=== PATIENT | male | born 1965 | race Caucasian/White ===

== ENCOUNTER 2021-05-09 12:51 | Inpatient (IN) | payer BC ==
[~2021-05-09] VITALS: Ht 180.3 cm; Wt 125.8 kg
[~2021-05-09 12:51] MED LIST: PREDNISONE10 MG PO; TESSALON PERLE100 MG PO; ZITHROMAX250 MG PO
[2021-05-09 16:35] LABS: HEMOGLOBIN 15.1 gm/dl (14.0-17.5); RED BLOOD COUNT 6.85 M/UL (4.20-5.50); WHITE BLOOD COUNT 5.6 K/UL (4.5-11.0)
[2021-05-09] MEDS ORDERED: DOXYCYCLINE HY100 MG PO (18:21)
[2021-05-10 08:35] LABS: HEMOGLOBIN 13.6 gm/dl (14.0-17.5); WHITE BLOOD COUNT 5.5 K/UL (4.5-11.0)
[2021-05-10 09:19] LABS: BUN/CREATININE RATIO 21 (0-10)
[2021-05-10 09:20] LABS: RED BLOOD COUNT 6.13 M/UL (4.20-5.50)
[2021-05-10] MEDS ORDERED: IPRAT-ALBUT 0.5-3 ML NEB (10:10)
[2021-05-10] MEDS ORDERED: PROTONIX40 MG PO (10:12)
[2021-05-10] MEDS ORDERED: TYLENOL EXTRA500 MG PO (10:13)
[2021-05-10] MEDS ORDERED: CARAFATE1 GM PO (10:13)
[2021-05-10] MEDS ORDERED: ZYRTEC10 MG PO (11:16)
--- NOTE | 2021-05-10 13:21 | NUR ---
reported to dr. miquel bowser complaints of right upper abdominal pain- he acknoweldged
[2021-05-11 08:00] LABS: RED BLOOD COUNT 5.9 M/UL (4.20-5.50)
[2021-05-11 08:02] LABS: WHITE BLOOD COUNT 3.9 K/UL (4.5-11.0)
[2021-05-11 08:56] LABS: BUN/CREATININE RATIO 20 (0-10)
[2021-05-13 07:05] LABS: HEMOGLOBIN 13.6 gm/dl (14.0-17.5); RED BLOOD COUNT 6.08 M/UL (4.20-5.50)
[2021-05-13 07:28] LABS: BUN/CREATININE RATIO 22 (0-10)
[2021-05-13 07:29] LABS: WHITE BLOOD COUNT 5.6 K/UL (4.5-11.0)
[2021-05-14 07:44] LABS: HEMOGLOBIN 13.5 gm/dl (14.0-17.5); RED BLOOD COUNT 6.08 M/UL (4.20-5.50); WHITE BLOOD COUNT 6.6 K/UL (4.5-11.0)
[2021-05-14 07:57] LABS: BUN/CREATININE RATIO 21 (0-10)
--- NOTE | 2021-05-14 15:32 | NUR ---
patient oxygen sat 87% on room air
[2021-05-14] MEDS ORDERED: VITAMIN C 500500 MG PO (15:42)
[2021-05-14] MEDS ORDERED: DECADRON6 MG PO (15:42)
[2021-05-14] MEDS ORDERED: CEFUROXIME500 MG PO (15:42)
== END 2021-05-14 17:40 | disposition home or self-care (01) | DRG 177 ==
LOC: ER1 12:51 → M/S 23:29 → CDU 23:29 → M/S 05-10 10:20
PROVIDERS: Family Medicine; Internal Medicine; Internal Medicine Infectious Disease; ADMIT Internal Medicine
PROC: XW033G6 Introduction of REGN-COV2 Monoclonal Antibody into Peripheral Vein, Percutaneous Approach, New Technology Group 6 (ICD-10-PCS; principal; 2021-05-09)
PROC: XW033E5 Introduction of Remdesivir Anti-infective into Peripheral Vein, Percutaneous Approach, New Technology Group 5 (ICD-10-PCS; 2021-05-09)
PROC: 3E0333Z Introduction of Anti-inflammatory into Peripheral Vein, Percutaneous Approach (ICD-10-PCS; 2021-05-09)
PROC: 8E0ZXY6 Isolation (ICD-10-PCS; 2021-05-10)
DX: U07.1 COVID-19 (principal); J12.82 Pneumonia due to coronavirus disease 2019; J96.01 Acute respiratory failure with hypoxia; M62.82 Rhabdomyolysis; K21.9 Gastro-esophageal reflux disease without esophagitis; R94.5 Abnormal results of liver function studies; Z99.81 Dependence on supplemental oxygen
CPT/HCPCS: 36415; 36600; 71045; 76705; 80048; 80053; 82550; 82553; 82803; 83605; 83874; 84484; 85025; 93005; 94760; 99285; J0692; J1100; J1650; J7030; M0243; Q9967

== ENCOUNTER 2021-06-02 08:55 | Emergency (ER) | payer BC ==
[~2021-06-02 08:55] MED LIST changes: +CARAFATE1 GM PO; +CEFUROXIME500 MG PO; +DECADRON6 MG PO; +DOXYCYCLINE HY100 MG PO; +IPRAT-ALBUT 0.5-3 ML NEB; +PROTONIX40 MG PO; +TYLENOL EXTRA500 MG PO; +VITAMIN C 500500 MG PO; +ZYRTEC10 MG PO
[2021-06-02 10:08] LABS: HEMOGLOBIN 13.5 gm/dl (14.0-17.5); RED BLOOD COUNT 5.87 M/UL (4.20-5.50); WHITE BLOOD COUNT 5.1 K/UL (4.5-11.0)
[2021-06-02 10:23] LABS: BUN/CREATININE RATIO 18 (0-10)
[2021-06-02] MEDS ORDERED: ATROVENT-HFA12.9 GM INH (12:22)
[2021-06-02] MEDS ORDERED: DELSYM30 MG/5 ML PO (12:22)
== END 2021-06-02 12:32 | disposition home or self-care (01) ==
LOC: ER1 08:55
PROVIDERS: Physician Assistant Medical
DX: R04.2 Hemoptysis (principal); R51.9 Headache, unspecified; Z86.16 Personal history of COVID-19; K21.9 Gastro-esophageal reflux disease without esophagitis
CPT/HCPCS: 70450; 71045; 80053; 82550; 82553; 83874; 84484; 85025; 85379; 85610; 93005; 99284; Q9967